=== PATIENT | female | born 1960 | race African-American/Black ===

== ENCOUNTER 2017-03-19 11:58 | Emergency (ER) | payer MEDICAID, OTHER ==
[~2017-03-19] VITALS: Ht 167.6 cm; Wt 76.0 kg
[~2017-03-19 11:58] MED LIST: AMLO10TA4 PO; AMLO10TA80 PO; ASPI-1079 PO; ASPI-1159 PO; ATOR10TA PO; HYDR25TA PO; MONT10TA21 PO; PHENDM PO; PRAV40TA58 PO
[2017-03-19] MEDS ORDERED: KETOROLAC 60MG/2ML VIAL IM ONE (19:00)
[2017-03-19 19:10] VITALS: BP 119/67
== END 2017-03-19 21:05 | disposition home or self-care (01) ==
LOC: ER 14:37
DX: S93.401A Sprain of unspecified ligament of right ankle, initial encounter (principal); W01.0XXA Fall on same level from slipping, tripping and stumbling without subsequent striking against object, initial encounter; Y93.02 Activity, running; Y92.89 Other specified places as the place of occurrence of the external cause; I10 Essential (primary) hypertension; E78.00 Pure hypercholesterolemia, unspecified; J44.9 Chronic obstructive pulmonary disease, unspecified; J45.909 Unspecified asthma, uncomplicated; Z88.8 Allergy status to other drugs, medicaments and biological substances; Z88.5 Allergy status to narcotic agent; Z79.899 Other long term (current) drug therapy; Z79.82 Long term (current) use of aspirin
CPT/HCPCS: 73610; 96372; 99284; J1885